=== PATIENT | female | born 1955 | race Caucasian/White ===

== ENCOUNTER 2017-06-09 20:25 | Emergency (ER) | payer SELFPAY ==
[~2017-06-09] VITALS: Ht 170.2 cm; Wt 68.2 kg
[2017-06-09 20:27] VITALS: BP 178/88; PULSE 74; RESP 18; TEMP 97.1; O2SAT 99
--- NOTE | 2017-06-14 10:19 | PD ---
Physical Exam Date Seen by Provider: Jun 09, 2017 Time Seen by Provider: 20:27 Narrative 62-year-old female presents to the emergency department stating that she tripped and fell causing an abrasion to her right knee and her nose when she broke her glasses. Patient admits to being intoxicated. She denies any head injury or LOC. She also reports abrasions to her bilateral hands. Her brought her to the emergency department and is with her. Current pain is 0/10. MDM Supervised Visit with [facility]: No Narrative Course 62-year-old female presents to the emergency department after a trip and fall. Patient is initially seen in triage. She left AGAINST MEDICAL ADVICE before she could be moved to medical bed. Diagnosis Primary Impression: Left against medical advice Patient Instructions: General Instructions Departure Forms: Tests/Procedures Disposition: 07 AGAINST MEDICAL ADVICE Maris Lozano Jun 14, 2017 10:19
== END 2017-06-09 23:40 | disposition left against medical advice (07) ==
LOC: NED 20:25
DX: S80.211A Abrasion, right knee, initial encounter (principal); S60.512A Abrasion of left hand, initial encounter; S60.511A Abrasion of right hand, initial encounter; W01.0XXA Fall on same level from slipping, tripping and stumbling without subsequent striking against object, initial encounter; F10.129 Alcohol abuse with intoxication, unspecified; Z53.21 Procedure and treatment not carried out due to patient leaving prior to being seen by health care provider
CPT/HCPCS: 99281